=== PATIENT | female | born 1985 | race Native Hawaiian/Other Pacific Islander ===

== ENCOUNTER 2016-09-24 06:01 | Inpatient (IN) | payer OTHER ==
[2016-09-24 06:26] VITALS: BMI 20.2
[2016-09-24] MEDS: Lactated Ringer's 1,000 ML IV ONE ×2 (06:30→07:00)
[2016-09-24] MEDS ORDERED: Oxytocin 20 units in LR 2,000 ML IV ONE (06:32)
[2016-09-24] MEDS ORDERED: Lidocaine 1% Inj (20ml) ONE (06:33)
[2016-09-24 06:45] LABS: BASO # 0.1 K/uL (0.0-0.2); BASO % 0.5 % (0.0-2.0); EOS % 0.1 % (0.0-4.0); HEMATOCRIT 37.7 % (34.0-47.0); LYMPH # 1.1 K/uL (1.0-4.3); LYMPH % 8.9 % (20.0-40.0); MEAN CELL VOLUME 82.5 fl (81.0-99.0); MEAN CORPUSCULAR HEMOGLOBIN 26.7 pg (27.0-31.0); MEAN CORPUSCULAR HGB CONC 32.4 g/dL (33.0-37.0); MEAN PLATELET VOLUME 8.4 fl (7.2-11.7); MONO # 0.5 K/uL (0.0-0.8); MONO % 3.8 % (0.0-10.0); NEUT # 10.4 K/uL (1.8-7.0); NEUT % 86.7 % (50.0-75.0); PLATELET COUNT 164 K/uL (130-400); RED CELL DISTRIBUTION WIDTH 12.8 % (11.5-14.5); WHITE BLOOD COUNT 11.9 K/uL (4.8-10.8)
[2016-09-24 06:51] VITALS: BP 107/66; PULSE 61; RESP 18; TEMP 98.9; O2SAT 99
[2016-09-24] MEDS ORDERED: Fentanyl/Bupivacaine HCl 250 ML EPI ONE (07:17)
--- NOTE | 2016-09-24 07:34 | OBHP ---
Datetime: 09/24/2016 06:42 IP Adm Impression: Term, intrauterine IP Admit Plan: Admit to unit; Initiate labor protocol Admit Comment, IP Provider: 31 YO F @ 37.3 weeks presents to the L_D w/ CTX. CTX started around 12 am. CTX have increased in intensity and have been happening more closer together. On admission sh mavis was ctx every 2-3 min. She had one eppisode of vomiting on coming to the [facility] which was non billiou s/ non bloody. HIV: none HbSag: none GBS: unknown, results not back Rubella: immune RPR: Neg Blood type: A+ GBS: neg - PT denies LOF, VB, - Pt has been irregularly taking her PNV. PMH: None PSH: None Allergy: NKDA MEd: PNV, F/H: none S/H : Denies alcohol, smoking 31 YO F @ 37.3 weeks being admitted for labor P: - Initiate labor protocol - Bolus Ringer's Lactate Hayden Akhtar M.D. [facility] ADDENDUM: Pt seen _ examined by me. Pt states ctx q5min since about 2am. denies srom. desires epidural. Ob hx sig for anemia which res olved with Fe supplementation o:6cm/80/+1 p: as above for epidural Pelvic Type - PN: Adequate Extremities - PN: Normal Abdomen - PN: Normal Back - PN: Normal Lungs - PN: Normal Heart - PN: Normal Neurologic - PN: Normal HEENT - PN: Normal General - PN: Normal Presentation-Admit: Vertex Contraction Comments Provider: 3-4 min EGA AdmitDate IP: 37.3 Vital Signs Provider: Reviewed; Within Normal Limits IP Chief Complaint: Uterine contractions NICHD Variability Prov Fetus A: Moderate 6-25bpm NICHD Accel Fetus A IP Provider: [id number] FHR Category Provider Fetus A: Category I NICHD Decel Fetus A IP Provider: None Dilatation, Provider: 5 Genitourinary Exam: Normal Datetime: 09/24/2016 06:37 FHR - Baseline A Provider: 135 (Annotations: Data stored by CPN on behalf of user) Membranes, Provider: Intact Effacement, Provider: 80 Station, Provider: 1
--- NOTE | 2016-09-24 07:38 | OBHP ---
Datetime: 09/24/2016 06:42 EGA AdmitDate IP: 37.3 Datetime: 09/24/2016 06:37 Admit Comment, IP Provider: 31 YO F @ 37.3 weeks presents to the L_D w/ CTX. CTX started around 12 am. CTX have increased in intensity and have been happening more closer together. On admission sh mavis was ctx every 2-3 min. She had one eppisode of vomiting on coming to the [facility] which was non billiou s/ non bloody. HIV: none HbSag: none GBS: unknown, results not back Rubella: immune Blood type: A+ GBS: neg - PT denies LOF, VB, - Pt has been irregularly taking her PNV. PMH: None PSH: None Allergy: NKDA MEd: PNV, F/H: none S/H : Denies alcohol, smoking 31 YO F @ 37.3 weeks being admitted for induction of labor P: - Initiate labor protocol - Bolus Ringer's Lactate Hayden Akhtar M.D PGY-1 [facility] ADDENDUM: Pt seen _ examined by me. Pt states ctx q5min since about 2am. denies srom. desires epidural. Ob hx sig for anemia which res olved with Fe supplementation o:6cm/80/+1 p: as above for epidural Pelvic Type - PN: Adequate Extremities - PN: Normal Back - PN: Normal Neurologic - PN: Normal Presentation-Admit: Vertex Contraction Comments Provider: 3-4 min Genitourinary Exam: Normal
[2016-09-24 11:17] LABS: BASOPHIL 1 % (0-2); NEUTROPHIL 83 % (42-75); TOTAL CELLS COUNTED 100
[2016-09-24] MEDS ORDERED: Propofol 10 mg/ml Inj (20 ML) ONE (12:08)
[2016-09-24] MEDS ORDERED: Benzocaine/Menthol SPRAY TOP PRN (12:57)
[2016-09-24] MEDS ORDERED: Oxycodone/Acetaminophen 5/325 mg Tab PO PRN (12:57)
--- NOTE | 2016-09-24 13:25 | OBDS ---
DELIVERY PERSONNEL Delivery Doctor: Don Gaona DO Sodium Chlorite Operator: Rashmi Griffith RN Anesthesiologist: MATERNAL INFORMATION Delivery Anesthesia: Local; Epidural Medications in Delivery: Pitocin 20 units at 999ml/hr/ Estimated Blood Loss (ml): 200 Placenta Cultured: No Maternal Complications: None RN Comments: IV sedation administered by Dr. Toney for vaginal repair. Anesthesia at bedside. patient with vaginal packing. Provider Comments: Over intact perineum, live female delivered from cephalic presentation. I nfant was crying spontaneously and bulb suctioned nasopharygeally. 9,9. Dr Amos came to see baby. Placenta delivered intact spontaneously. Laceration was repaired as above. Vagianl packing placed...to be removed later today/morning. She remained stable. EBL 200cc LABOR SUMMARY EDC: 10/12/2016 00:00 No. Babies in Womb: 1 Attempted: No Labor Anesthesia: Epidural LABOR INFORMATION Reason for Induction: Not Applicable Complete Dilatation: 09/24/2016 10:30 Oxytocin: N/A Group B Beta Strep: Negative Steroids Given: None Reason Steroids Not Administered: Not Applicable MEMBRANES Membranes Rupture Method: Artificial Rupture of Membranes: 09/24/2016 08:15 Length of Rupture (hrs): 3.65 Amniotic Fluid Color: Clear Amniotic Fluid Amount: Small Amniotic Fluid Odor: Normal STAGES OF LABOR Stage 2 hrs: 1 Stage 2 min: 24 Stage 3 hrs: 0 Stage 3 min: 9 VAGINAL DELIVERY Episiotomy: None Laceration Extension: Second Degree Laceration Type: Perineal; Vaginal Other Laceration: Bilateral vaginal laceration Laceration Repair: Yes Laceration Repair Note: 1% Lidocaine infiltrated - 4-5cc...she still felt discomfort doing the repai r. Anesthesia contacted because epidural was shut off. Iv sedation was given by Dr Toney. Vaginal packing placed Initial Vag Sponge Count: 10 Final Vag Sponge Count: 10 Initial Vag Sharps Count: 5 Final Vag Sharps Count: 5 Sponge Count Correct: Yes Sharps Count Correct: Yes Count Comment: 10 lap pads 5 sutures (used 3) BABY A INFORMATION Infant Delivery Date/Time: 09/24/2016 11:54 Method of Delivery: Vaginal Born in Route : No : N/A Forceps: N/A Vacuum Extraction: N/A Shoulder Dystocia : No SHOULDER DYSTOCIA BABY A Infant Delivery Date/Time: 09/24/2016 11:54 PRESENTATION/POSITION BABY A Presentation: Cephalic Cephalic Presentation: Vertex Breech Presentation: N/A PLACENTA INFORMATION BABY A Placenta Delivery Time : 09/24/2016 12:03 Placenta Method of Delivery: Spontaneous Placenta Status: Delivered SCORES BABY A Heart Rate 1 min: >100 bpm Resp Effort 1 min: Good Cry Reflex Irritability 1 min: Cough or Sneeze or Pulls Away Muscle Tone 1 min: Active Motion Color 1 min: Body [place], Extremities Blue Resuscitation Effort 1 min: Tactile Stimulation SCORE 1 MIN: 9 Heart Rate 5 min: >100 bpm Resp Effort 5 min: Good Cry Reflex Irritability 5 min: Cough or Sneeze or Pulls Away Muscle Tone 5 min: Active Motion Color 5 min: Body [place], Extremities Blue Resuscitation Effort 5 min: Tactile Stimulation SCORE 5 MIN: 9 INFANT INFORMATION BABY A Gestational Age at Delivery: 37.0 Gestational Status: Term Infant Outcome : Liveborn Condition : Stable Sex: Female IDENTIFICATION/MEDS BABY A ID Band Number: [id number] ID Band Location: Left Leg; Left Arm WEIGHT/LENGTH BABY A Infant Birthweight (gms): 2975 Weight (lb): 6 Infant Weight (oz): 9 CORD INFORMATION BABY A No. Cord Vessels: 3 Nuchal Cord : N/A Cord Blood Taken: N/A Suction: None ASSESSMENT BABY A Complications: None Physical Findings at Delivery: Within Normal Limits Infant Respirations: Appears Normal Aircraft Technician/ALS Called : No Care By: Lea Rabago/Emma
[2016-09-25] MEDS: Multivitamin With Minerals Tab PO SCH (08:55)
[2016-09-25 09:18] LABS: BASO % 0.3 % (0.0-2.0); EOS % 0.2 % (0.0-4.0); HEMATOCRIT 31.6 % (34.0-47.0); LYMPH # 1.7 K/uL (1.0-4.3); LYMPH % 13.6 % (20.0-40.0); MEAN CORPUSCULAR HEMOGLOBIN 27.4 pg (27.0-31.0); MEAN PLATELET VOLUME 8.3 fl (7.2-11.7); MONO # 0.6 K/uL (0.0-0.8); MONO % 4.5 % (0.0-10.0); NEUT # 10.1 K/uL (1.8-7.0); NEUT % 81.4 % (50.0-75.0); RED CELL DISTRIBUTION WIDTH 13.2 % (11.5-14.5); WHITE BLOOD COUNT 12.4 K/uL (4.8-10.8)
--- NOTE | 2016-09-25 12:17 | OBPPN ---
Datetime: 09/25/2016 12:15 PP Pain Prov: Within normal limits PP Nausea Prov: Denies PP Flatus Prov: Yes PP Breasts Prov: Not Done PP Heart Prov: Normal PP Lungs Prov: Normal PP Abdomen/Uterus Prov: Normal PP Lochia Prov: Normal PP Vulva/Perineum Prov: Normal PP CVA Tenderness Prov: Normal PP Extremities Prov: Normal PP Impression Prov: Normal progression PP Plan Prov: Continue present management PP Progress Note Prov: Patient doing well ambulating voiding tolerating diet Vital signs stable afebrile Uterus firm below the umbilicus Normal external female genitalia Vaginal packing in place Status post SPONTANEOUS VAGINAL DELIVERY VAGINAL PACKING REMOVED MOTRIN NEEDED AMBULATION Vital Signs Provider PP: Reviewed
--- NOTE | 2016-09-26 09:22 | OBPPN ---
Datetime: 09/26/2016 09:16 PP Pain Prov: Within normal limits PP Abdomen/Uterus Prov: Normal PP Lochia Prov: Normal PP Extremities Prov: Normal PP Progress Prov: Normal PP Impression Prov: Normal progression PP Plan Prov: Discharge PP Progress Note Prov: PPD2 s/p , doing well, breast and bottle feeding Rx motrin given Pt told to resume PNV and iron supplement Discharge home today Vital Signs Provider PP: Reviewed; Within Normal Limits
--- NOTE | 2016-09-26 09:22 | OBDCSUM ---
Datetime: 09/26/2016 09:20 Discharged to, Provider: Home Follow up at, Provider: Dr. Candelaria Bass Instr Activity: Normal activity; May Shower Disch Instr Diet: Regular Discharge Instructions, Provider: Routine instructions given Discharge Diagnosis, Provider: Term Delivered Discharge Time: 09/26/2016 09:20 Follow up in weeks, Provider: 6 weeks Contraception discussed, Prov: No Disch Activity Restrictions: No exercising; No lifting; No sexual activity; Nothing in vagina - Inte rcourse, tampons, douche
[2016-09-26] MEDS: Multivitamin With Minerals Tab PO SCH (09:42)
== END 2016-09-26 13:20 | disposition home or self-care (01) | DRG 775 ==
LOC: H.EROB2 06:01 → H.L&D 06:26 → H.OB/GYN 14:50
PROVIDERS: ADMIT Obstetrics & Gynecology; ATTEND Obstetrics & Gynecology
PROC: 0KQM0ZZ Repair Perineum Muscle, Open Approach (ICD-10-PCS; principal; 2016-09-24)
PROC: 10E0XZZ Delivery of Products of Conception, External Approach (ICD-10-PCS; 2016-09-24)
PROC: 4A1HXCZ Monitoring of Products of Conception, Cardiac Rate, External Approach (ICD-10-PCS; 2016-09-24)
DX: O70.1 Second degree perineal laceration during delivery (principal); Z37.0 Single live birth; Z3A.37 37 weeks gestation of pregnancy